=== PATIENT | male | born 1975 | race Caucasian/White ===

== ENCOUNTER 2017-06-23 09:47 | Emergency (ER) | payer MEDICAID ==
[~2017-06-23] VITALS: Ht 182.9 cm; Wt 63.5 kg
[2017-06-23 10:54] LABS: Basophils # (auto) 0.1 uL; Basophils % (auto) 0.4 % (0.0-2.0); Eosinophils # (auto) 0 uL; Eosinophils % (auto) 0.2 % (0.0-7.0); Hematocrit 49.4 % (41.0-53.0); Hemoglobin 16.9 g/dL (13.5-17.5); Lymphocytes # (auto) 1.9 uL; Lymphocytes % (auto) 13.4 % (10.0-50.0); Mean Corpuscular Hemoglobin 32.5 pg (28.0-32.0); Mean Corpuscular Hgb Conc. 34.1 g/dL (32.0-36.0); Mean Corpuscular Volume 95.2 fL (80.0-100.0); Monocytes % (auto) 6.8 % (0.0-12.0); Neutrophils # (auto) 11.5 uL; Neutrophils % (auto) 79.2 % (37.0-80.0); Platelet Count (auto) 335 10^3/uL (140-450); Red Blood Cells 5.19 10^6/uL (4.5-5.90); Red Cell Distribution Width 13.9 % (11.8-14.3); White Blood Cell 14.5 10^3/uL (4.4-10.8)
[2017-06-23 11:11] LABS: INR 1.15 (0.9-1.15); Partial Thromboplastin Time 25.9 sec (22.64-33.71); Prothrombin Time 12.5 sec (9.37-12.3)
[2017-06-23 11:19] LABS: Albumin 4.6 g/dL (3.4-5.0); Bilirubin, Total 1.3 mg/dL (0.2-1.0); Calcium 9.3 mg/dL (8.5-10.1); Magnesium 2.3 mg/dL (1.6-2.6); Potassium 5.2 mmol/L (3.5-5.1); Total Protein 8.3 g/dL (6.4-8.2)
[2017-06-23 14:05] VITALS: BP 99/62
[2017-06-23] MEDS ORDERED: traMADol HCL 50 MG TAB PO ONE (16:00)
== END 2017-06-23 16:36 | disposition home or self-care (01) ==
LOC: EDBD 09:47 → ER 09:47
DX: R07.9 Chest pain, unspecified (principal)
CPT/HCPCS: 36415; 71046; 80053; 83735; 83880; 84484; 85025; 85610; 85730; 93005

== ENCOUNTER 2018-03-20 01:50 | Emergency (ER) | payer SELFPAY ==
[~2018-03-20] VITALS: Ht 182.9 cm; Wt 63.5 kg
[2018-03-20 02:09] VITALS: BP 142/80
[2018-03-20 02:54] LABS: Basophils # (auto) 0.1 uL; Basophils % (auto) 1.5 % (0.0-2.0); Eosinophils # (auto) 0.2 uL; Eosinophils % (auto) 3.2 % (0.0-7.0); Hematocrit 44.3 % (41.0-53.0); Hemoglobin 14.9 g/dL (13.5-17.5); Lymphocytes # (auto) 2.6 uL; Lymphocytes % (auto) 35.2 % (10.0-50.0); Mean Corpuscular Hemoglobin 32.2 pg (28.0-32.0); Mean Corpuscular Hgb Conc. 33.6 g/dL (32.0-36.0); Monocytes # (auto) 0.6 uL; Monocytes % (auto) 8.6 % (0.0-12.0); Neutrophils # (auto) 3.9 uL; Neutrophils % (auto) 51.5 % (37.0-80.0); Platelet Count (auto) 228 10^3/uL (140-450); Red Blood Cells 4.61 10^6/uL (4.5-5.90); Red Cell Distribution Width 14.1 % (11.8-14.3); White Blood Cell 7.5 10^3/uL (4.4-10.8)
[2018-03-20 03:10] LABS: Alanine Aminotransferase 19 U/L (16-61); Albumin 3.5 g/dL (3.4-5.0); Anion Gap 7 (5-15); Aspartate Aminotransferase 14 U/L (15-37); BUN/Creatinine Ratio 11.9; Blood Urea Nitrogen 12 mg/dL (7-18); Calcium 8.6 mg/dL (8.5-10.1); Carbon Dioxide 25 mmol/L (21-32); Chloride 108 mmol/L (98-107); GFR African American > 60 mL/min; GFR Non-African American > 60 mL/min; Glucose 107 mg/dL (74-106); Potassium 3.6 mmol/L (3.5-5.1); Sodium 140 mmol/L (136-145)
[2018-03-20 03:12] LABS: Alkaline Phosphatase 82 U/L (45-117); Bilirubin, Total 0.3 mg/dL (0.2-1.0); Total Protein 6.7 g/dL (6.4-8.2)
[2018-03-20] MEDS ORDERED: IBUPROFEN 800 MG TAB PO ONE (04:15)
[2018-03-20] MEDS ORDERED: KETOROLAC TROMETH 60MG/2ML VIAL IM ONE (05:30)
== END 2018-03-20 05:34 | disposition home or self-care (01) ==
LOC: EDBD 01:50 → ER 01:58
DX: G89.29 Other chronic pain (principal); M54.5 Low back pain; F12.10 Cannabis abuse, uncomplicated; F15.10 Other stimulant abuse, uncomplicated
CPT/HCPCS: 36415; 72100; 80053; 85025; 99284; J1885

== ENCOUNTER 2018-05-21 22:04 | Emergency (ER) | payer MEDICAID ==
[~2018-05-21] VITALS: Ht 177.8 cm; Wt 79.4 kg
[2018-05-22 12:29] VITALS: BP 136/84
== END 2018-05-22 12:26 | disposition home or self-care (01) ==
LOC: EDBD 22:04 → ER 22:30
DX: M79.652 Pain in left thigh (principal); F41.9 Anxiety disorder, unspecified; M54.5 Low back pain; F17.210 Nicotine dependence, cigarettes, uncomplicated; F12.90 Cannabis use, unspecified, uncomplicated; F15.90 Other stimulant use, unspecified, uncomplicated